=== PATIENT | female | born 1940 | race Hispanic/Latino ===

== ENCOUNTER 2019-05-21 13:16 | Emergency (ER) | payer MEDICARE ==
[2019-05-21] MEDS ORDERED: ONDANSETRON 4 MG/2 ML INJ ONE (13:25)
[2019-05-21] MEDS ORDERED: ONDANSETRON 4 MG/2 ML INJ IV ONE (13:49)
[2019-05-21 13:52] LABS: Basophils % (Auto) 0.6 % (0.0-1.8); Eosinophils # (Auto) 0.2 K/mm3 (0.0-0.4); Hematocrit 42.2 % (30.3-42.9); Hemoglobin 13.8 gm/dl (10.1-14.3); Lymphocytes # (Auto) 2.1 K/mm3 (1.2-5.4); Lymphocytes % (Auto) 45.6 % (13.4-35.0); Mean Corpuscular HGB Conc 33 % (30-34); Mean Corpuscular Volume 91 fl (79-97); Monocytes # (Auto) 0.3 K/mm3 (0.0-0.8); Platelet Count 188 K/mm3 (140-440); Red Blood Count 4.64 M/mm3 (3.65-5.03)
--- NOTE | 2019-05-21 13:57 | Emergency Department Report ---
HPI - HPI HPI: [facility] Date of Service: 05/21/2019 13:21:26 Impression: Right Hemispheric ICH Comments: Unable to personally view the images at this time but ED MD say a hemorrhage on the right side. Metrics: Last Known Well: 05/21/2019 12:59:00 [facility] Notification Time: 05/21/2019 13:20:52 Arrival Time: 05/21/2019 13:16:00 Stamp Time: 05/21/2019 13:21:26 Time First Login Attempt: 05/21/2019 13:27:18 Video Start Time: 05/21/2019 13:48:00 Symptoms: left sided weakness NIHSS Start Assessment Time: 05/21/2019 13:49:00 Patient is not a candidate for tPA. Patient was not deemed candidate for tPA thrombolytics because of Current or Previous ICH. Video End Time: 05/21/2019 13:52:11 CT head was reviewed. Advanced imaging was not obtained as the presentation was not suggestive of Large Vessel Occlusive Disease. Radiologist was not called back for review of advanced imaging because not indicated ER Physician notified of the decision on thrombolytics management on 05/21/2019 13:52:42 Our recommendations are outlined below. Recommendations: Activate Stroke Protocol Admission/Order Set Stroke/Telemetry Floor Neuro Checks Bedside Swallow Eval DVT Prophylaxis IV Fluids, Normal Saline Head of Bed Below 30 Degrees Euglycemia and Avoid Hyperthermia (PRN Acetaminophen) Start Antiplatelet Therapy Daily Consult Neurosurgery BP control per hospital ICH protocol Therapies: Physical Therapy, Occupational Therapy, Speech Therapy Assessment When Applicable Dysphaghia Screen: Swallow Evaluation, Bedside DVT prophylaxis: SCDs, Pneumatic Compression Disposition: Sign Out Sign Out: Discussed with Emergency Department Provider History of Present Illness: Patient is a 79 year old Female. Patient was brought by EMS for symptoms of left sided weakness 79 yo F who is presenting with left sided weakness. She was home with her son who saw her normal at 12:50 and then stepped outside for 10 minutes and came back to find her on the floor with left sided weakness. CT head was reviewed. Examination: 1A: Level of Consciousness - Arouses to minor stimulation + 1 1B: Ask Month and Age - Could Not Answer Either Question Correctly + 2 1C: Blink Eyes & Squeeze Hands - Performs 0 Tasks + 2 2: Test Horizontal Extraocular Movements - Partial Gaze Palsy: Can Be Overcome + 1 3: Test Visual Massey - No Visual Loss + 0 4: Test Facial Palsy (Use Grimace if Obtunded) - Minor paralysis (flat nasolabial fold, smile asymetry) + 1 5A: Test Left Arm Motor Drift - No Effort Against [place] + 3 5B: Test Right Arm Motor Drift - No Drift for 10 Seconds + 0 6A: Test Left Leg Motor Drift - No Effort Against [place] + 3 6B: Test Right Leg Motor Drift - No Drift for 5 Seconds + 0 7: Test Limb Ataxia (FNF/Heel-Larios) - No Ataxia + 0 8: Test Sensation - Normal; No sensory loss + 0 9: Test Language/Aphasia - Mild-Moderate Aphasia: Some Obvious Changes, Without Significant Limitation + 1 10: Test Dysarthria - Mild-Moderate Dysarthria: Slurring but can be understood + 1 11: Test Extinction/Inattention - No abnormality + 0 NIHSS Score: 15 Patient was informed the Neurology Consult would happen via TeleHealth consult by way of interactive audio and video telecommunications and consented to receiving care in this manner. Due to the immediate potential for life-threatening deterioration due to underlying acute neurologic illness, I spent 35 minutes providing critical care. This time includes time for face to face visit via telemedicine, review of medical records, imaging studies and discussion of findings with providers, the patient and/or family. Dr Andie Vega [facility] ED Review of Systems ROS: Stated complaint: POSS STROKE Other details as noted in HPI ED Medical Decision Making - Lab Data Result diagrams: 05/21/19 13:37 Critical care attestation.: If time is entered above; I have spent that time in minutes in the direct care of this critically ill patient, excluding procedure time. ED Disposition Clinical Impression: ICH (intracerebral hemorrhage) Disposition: OP ADMIT IP TO THIS HOSP Is pt being admited?: Yes Condition: Stable Referrals: PRIMARY CARE, [Primary Care Provider] - 3-5 Days
--- NOTE | 2019-05-21 13:58 | Cat Scan Report ---
CT head without contrast HISTORY: neuro deficits <6hrs or sx present upon awakening. Code stroke TECHNIQUE: Axial imaging performed from the skull apex through the skull base without the use of con trast. All CT scans at this location are performed using CT dose reduction for ALARA by means of aut omated exposure control. COMPARISON: None FINDINGS: Parenchyma: There is an acute pontine hemorrhage which begins just right of midline and there appear s to be extension to involve the fourth ventricle. Ventricles: There is mild diffuse brain atrophy with commensurate ventricular enlargement which is l ikely age appropriate. No significant hydrocephalus at this point. Soft tissues: Soft tissues including the orbits appear normal. Bones: No acute osseous abnormality. Sinuses: Sinuses and mastoid air cells are clear. 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 CRITICAL RESULT: Time of Discovery (CPAS/CDT): 12:49 PM Time of Communication (CPAS/CDT): 12:51 PM Licensed Practitioner Receiving Report: Dr. Bella Read Back Performed: Not applicable. Signer Name: Juancho Mccoy MD Signed: 05/21/2019 1:53 PM Workstation Name: [id number]
[2019-05-21] MEDS ORDERED: niCARdipine 50 MG in SODIUM CHLORIDE 0.9% 250ML 230 ML IV SCH (14:00)
[2019-05-21 14:01] LABS: INR 1.49 (0.87-1.13)
[2019-05-21 14:02] LABS: Partial Thromboplastin Time 30.6 Sec. (24.2-36.6); Thrombin Time 19.5 Sec. (15.1-19.6)
[2019-05-21 14:13] LABS: BUN/Creatinine Ratio 11; Blood Urea Nitrogen 11 mg/dL (7-17); Calcium 9.3 mg/dL (8.4-10.2); Hemolysis Index 9
--- NOTE | 2019-05-21 14:19 | Emergency Department Report ---
ED Neuro Deficit HPI - General Chief Complaint: Neuro Symptoms/Deficit Stated Complaint: POSS STROKE Time Seen by Provider: 05/21/19 14:05 Source: family, EMS Mode of arrival: Stretcher Limitations: Other - History of Present Illness Initial Comments: Patient is 79 years old female with history of hypertension and remote history of lung cancer. Patient brought to the emergency room via EMS for stroke evaluation. Patient son stated that he left his mother in her normal state at 12:59 PM, he stepped out for 10 minutes and came back and find her down on the floor with left sided weakness and difficulty speaking. Stroke protocol initiated immediately. Dr. Vega from telemetry neurologist examine the patient. Patient found to half acute pontine hemorrhage. Patient initial blood pressure is 192/100. Patient started on Cardene drip. Initial NIHS score 15. Patient GCS is 15 When I examine her. -: Sudden Location: speech, left face, left arm, left leg Presenting Symptoms: Present: Weak/Paralyzed One Side, Facial Droop/Numbness, Unable to Speak Clearly History of same: Yes Place: home Severity: moderate Quality: weak Context: sudden onset - Related Data Home Medications: Home Medications Medication Instructions Recorded Confirmed Last Taken Apixaban [Eliquis] 5 mg PO DAILY 05/21/19 05/21/19 Unknown Aspirin [Aspirin BABY CHEW TAB] 81 mg PO DAILY 05/21/19 05/21/19 Unknown Ferrous Sulfate [Iron 325 MG] 325 mg PO DAILY 05/21/19 05/21/19 Unknown Levothyroxine [Synthroid] 25 mcg PO DAILY 05/21/19 05/21/19 Unknown Lisinopril [Zestril TAB] 20 mg PO DAILY 05/21/19 05/21/19 Unknown Metoprolol [Lopressor TAB] 50 mg PO BID 05/21/19 05/21/19 Unknown metFORMIN [Glucophage] 850 mg PO BID 05/21/19 05/21/19 Unknown Allergies/Adverse Reactions: Allergies Allergy/AdvReac Type Severity Reaction Status Date / Time No Known Allergies Allergy Verified 05/21/19 13:18 ED Review of Systems ROS: Stated complaint: POSS STROKE Other details as noted in HPI Comment: All other systems reviewed and negative Constitutional: denies: chills, fever Respiratory: denies: cough, shortness of breath, SOB with exertion, wheezing Cardiovascular: denies: chest pain, palpitations Gastrointestinal: nausea, vomiting. denies: abdominal pain, diarrhea, constipation, hematemesis, melena, hematochezia Musculoskeletal: denies: back pain ED Past Medical Hx - Past Medical History Previous Medical History?: Yes Hx Hypertension: Yes Hx Diabetes: Yes Additional medical history: Hypothyroidism. Heart Disease - Social History Smoking Status: Never Smoker Substance Use Type: None - Medications Home Medications: Home Medications Medication Instructions Recorded Confirmed Last Taken Type Apixaban [Eliquis] 5 mg PO DAILY 05/21/19 05/21/19 Unknown History Aspirin [Aspirin BABY CHEW TAB] 81 mg PO DAILY 05/21/19 05/21/19 Unknown History Ferrous Sulfate [Iron 325 MG] 325 mg PO DAILY 05/21/19 05/21/19 Unknown History Levothyroxine [Synthroid] 25 mcg PO DAILY 05/21/19 05/21/19 Unknown History Lisinopril [Zestril TAB] 20 mg PO DAILY 05/21/19 05/21/19 Unknown History Metoprolol [Lopressor TAB] 50 mg PO BID 05/21/19 05/21/19 Unknown History metFORMIN [Glucophage] 850 mg PO BID 05/21/19 05/21/19 Unknown History ED Neuro Physical Exam - General Limitations: Other General appearance: alert, in no apparent distress Suspected Stroke: Yes - Head Head exam: Present: atraumatic, normocephalic, normal inspection - Eye Eye exam: Present: normal appearance - ENT ENT exam: Present: normal exam, normal orophraynx, mucous membranes moist - Neck Neck exam: Present: normal inspection, full ROM. Absent: tenderness, meningismus, lymphadenopathy, thyromegaly - Respiratory Respiratory exam: Present: normal lung sounds bilaterally - Cardiovascular Cardiovascular Exam: Present: regular rate, normal rhythm, normal heart sounds - GI/Abdominal GI/Abdominal exam: Present: soft, normal bowel sounds. Absent: distended, t enderness, guarding, rebound, rigid, organomegaly, mass, bruit, pulsatile mass, hernia - Extremities Exam Extremities exam: Present: normal inspection, full ROM, normal capillary refill. Absent: pedal edema, calf tenderness - Neurological Exam Neurological exam: Present: alert, oriented X3 - NIHSS Assessment Interval: Baseline 1a. Level of Consciousness: alert/keenly responsive 1b. LOC Questions: answers both correctly 1c. LOC Commands: performs tasks correctly 2. Best Gaze: normal 3. Visual: no visual loss 4. Facial Palsy: minor paralysis 5b. Motor Arm Right: no drift 5a. Motor Arm Left: no drift 6a. Motor Leg Left: drift 6b. Motor Leg Right: no drift 7. Limb Ataxia: absent 8. Sensory: normal 9. Best Language: mild/moderate aphasia 10. Dysarthria: mild/moderate dysarthria 11. Extinction/Inattention: no abnormality Total Score: 4 Stroke Severity: Minor Stroke - Psychiatric Psychiatric exam: Present: normal mood - Skin Skin exam: Present: warm, intact, normal color ED Course Vital Signs 05/21/19 05/21/19 05/21/19 13:45 14:00 14:16 Pulse Rate 86 87 85 Respiratory 11 L 9 L 12 Rate Blood Pressure 192/111 156/101 O2 Sat by Pulse 96 87 99 Oximetry 05/21/19 14:30 Pulse Rate 83 Respiratory 15 Rate Blood Pressure 140/92 O2 Sat by Pulse 99 Oximetry - Reevaluation(s) Reevaluation #1: 05/21/19 14:39 I discussed the patient with Dr.Hillary Lara, neurosurgeon at [facility]. She accepted the patient to be transferred to [facility] since we don't have neurosurgery capability in our hospital. Patient will be transfer for observation and possible surgical intervention if needed. She recommended to maintain the blood pressure between 140-160 systolic. 05/21/19 15:44 Reevaluation #2: 05/21/19 14:44 Patient reexamined. Patient is alert and talking to her son. In no acute distress. GCS is 15. No need for intubation at this moment. We will observed carefully. Reevaluation #3: 05/21/19 15:23 Patient reexamined again. Patient is alert, oriented 3. GCS is 15. Patient transferred to [facility] in stable condition on Cardene drip. - Lab Data Result diagrams: 05/21/19 13:37 05/21/19 13:37 Lab Results 05/21/19 05/21/19 05/21/19 Range/Units 13:37 13:37 13:37 WBC 4.7 (4.5-11.0) K/mm3 RBC 4.64 (3.65-5.03) M/mm3 Hgb 13.8 (10.1-14.3) gm/dl Hct 42.2 (30.3-42.9) % MCV 91 (79-97) fl MCH 30 (28-32) pg MCHC 33 (30-34) % RDW 15.0 (13.2-15.2) % Plt Count 188 (140-440) K/mm3 Lymph % (Auto) 45.6 H (13.4-35.0) % Mcminn % (Auto) 7.0 (0.0-7.3) % Eos % (Auto) 4.0 (0.0-4.3) % Baso % (Auto) 0.6 (0.0-1.8) % Lymph # 2.1 (1.2-5.4) K/mm3 Mcminn # 0.3 (0.0-0.8) K/mm3 Eos # 0.2 (0.0-0.4) K/mm3 Baso # 0.0 (0.0-0.1) K/mm3 Seg Neutrophils % 42.8 (40.0-70.0) % Seg Neutrophils # 2.0 (1.8-7.7) K/mm3 PT 17.8 H (12.2-14.9) Sec. INR 1.49 H (0.87-1.13) APTT 30.6 (24.2-36.6) Sec. Thrombin Time 19.5 (15.1-19.6) Sec. Sodium 136 L (137-145) mmol/L Potassium 3.6 (3.6-5.0) mmol/L Chloride 99.2 (98-107) mmol/L Carbon Dioxide 21 L (22-30) mmol/L Anion Gap 19 mmol/L BUN 11 (7-17) mg/dL Creatinine 1.0 (0.7-1.2) mg/dL Estimated GFR 54 ml/min BUN/Creatinine Ratio 11 % Glucose 298 H (65-100) mg/dL Calcium 9.3 (8.4-10.2) mg/dL Troponin T < 0.010 (0.00-0.029) ng/mL - EKG Data -: EKG Interpreted by Ar EKG shows normal: sinus rhythm Rate: normal Interpretation: no acute changes - Radiology Data Radiology results: report reviewed - Medical Decision Making Patient is 79 years old female with history of hypertension and remote history of lung cancer. Patient brought to the emergency room via EMS for stroke evaluation. Patient son stated that he left his mother in her normal state at 12:59 PM, he stepped out for 10 minutes and came back and find her down on the floor with left sided weakness and difficulty speaking. Stroke protocol initiated immediately. Dr. Vega from telemetry neurologist examine the patient. Patient found to half acute pontine hemorrhage. Patient initial blood pressure is 192/100. Patient started on Cardene drip. Initial NIHS score 15. Patient GCS is 15 When I examine her. I discussed the patient with Dr.Hillary Lara, neurosurgeon at [facility]. She accepted the patient to be transferred to [facility] since we don't have neurosurgery capability in our hospital. Patient will be transfer for observation and possible surgical intervention if needed. She recommended to maintain the blood pressure between 140-160 systolic. Critical Care Time: Yes Critical care time in (mins) excluding proc time.: 45 Critical care attestation.: If time is entered above; I have spent that time in minutes in the direct care of this critically ill patient, excluding procedure time. ED Disposition Clinical Impression: ICH (intracerebral hemorrhage), CVA (cerebral vascular accident) Disposition: [id number]/TX-[id number] ANOTHER TYPE HLTHCARE Is pt being admited?: No Condition: Stable Referrals: PRIMARY CARE, [Referring] - 3-5 Days
[2019-05-21 14:46] VITALS: BP 140/92
[2019-05-21] MEDS ORDERED: SODIUM CHLORIDE 0.9% 1000 ML 1,000 ML ONE (15:21)
== END 2019-05-21 15:05 | disposition other institution (70) ==
LOC: ED 13:16
DX: I61.9 Nontraumatic intracerebral hemorrhage, unspecified (principal); I63.9 Cerebral infarction, unspecified; I10 Essential (primary) hypertension; E11.9 Type 2 diabetes mellitus without complications; E03.9 Hypothyroidism, unspecified; Z79.899 Other long term (current) drug therapy
CPT/HCPCS: 36415; 70450; 80048; 82962; 84484; 85025; 85610; 85670; 85730; 93005; 93010; 96374; 99291; J2405; J7030; J7050